=== PATIENT | female | born 1945 | race Caucasian/White ===

== ENCOUNTER 2018-04-30 17:19 | Emergency (ER) | payer OTHER, MEDICARE ==
[~2018-04-30] VITALS: Ht 167.6 cm; Wt 95.3 kg
[~2018-04-30 17:19] MED LIST: APAP/HYDROCODON1 T13 PO; ATENOLOL1 POW; COZAAR25 MG; HCTZ-METOPROLOL1 TA1; METFORMIN500 M1; VITAMIN D1 TAB; [UNRECOGNIZED DRUG - OTHER]
[2018-04-30 17:22] VITALS: Ht 167.6 cm; Wt 95.3 kg
[2018-04-30 18:15] LABS: BASOPHIL % 0.6 % (0-2); PLATELET COUNT 246 x10^3mcL (130-400); RED CELL DISTRIBUTION WIDTH 12.9 % (11.5-14.5)
[2018-04-30 18:26] LABS: CALCIUM 9.3 mg/dL (8.5-10.1); CARBON DIOXIDE 27.1 mmol/L (21-32); CHLORIDE SERUM 104 mmol/L (98-107); CREATININE SERUM 1.2 mg/dL (0.6-1.0); GLUCOSE SERUM 109 mg/dL (74-106); POTASSIUM SERUM 3.7 mmol/L (3.5-5.1); SODIUM SERUM 141 mmol/L (136-145)
[2018-04-30 18:31] LABS: ALBUMIN 3.7 g/dL (3.4-5.0); ALKALINE PHOSPHATASE 135 U/L (46-116); ALT/SGPT 26 U/L (14-59); AST/SGOT 31 U/L (15-37); BILIRUBIN TOTAL 0.44 mg/dL (0.20-1.00); LIPASE 148 IU/L (73-393); TOTAL PROTEIN, SERUM 7.7 g/dL (6.4-8.2)
[2018-04-30 21:27] VITALS: BP 164/80
== END 2018-04-30 21:27 | disposition home or self-care (01) ==
LOC: ED 17:19
PROVIDERS: Emergency Medicine
DX: N20.2 Calculus of kidney with calculus of ureter (principal); I10 Essential (primary) hypertension; E11.9 Type 2 diabetes mellitus without complications; M79.7 Fibromyalgia; Z90.49 Acquired absence of other specified parts of digestive tract
CPT/HCPCS: J1885; J2270; J2405; J7030; Q0162